=== PATIENT | male | born 1990 | race Caucasian/White ===

== ENCOUNTER 2018-03-23 10:01 | Emergency (ER) | payer SELFPAY ==
[2018-03-23] MEDS ORDERED: IBUPROFEN 400 MG TAB ONE (10:48)
[2018-03-23] MEDS ORDERED: IBUPROFEN 200 MG TAB PO ONE (10:48)
[2018-03-23] MEDS ORDERED: LIDOCAINE 1% MPF 2 ML AMPULE ONE (10:48)
[2018-03-23] MEDS ORDERED: CEFTRIAXONE 1000 MG/VIAL ONE (10:48)
[2018-03-23] MEDS ORDERED: HYDROCODONE/APAP 10/325 TAB ONE (10:48)
[2018-03-23] MEDS ORDERED: ONDANSETRON 4 MG (ODT) TAB ONE (10:49)
--- NOTE | 2018-03-23 10:53 | EDPHYS ---
Physician Documentation [facility] Name: Khari Alarcon Age: 27 yrs Sex: Male : 1990 Arrival Date: 03/23/2018 Time: 10:04 Bed 19 Private MD: None, None ED Physician Connor Bruno HPI: 03/23 11:30 This 27 yrs old Male presents to ER via Ambulatory with complaints of Facial snw pain. 11:30 Onset: The symptoms/episode began/occurred suddenly, 2 day(s) ago, and became snw persistent. Associated signs and symptoms: Pertinent positives: earache. Modifying factors: The patient symptoms are alleviated by nothing. The patient has experienced a previous episode, approximately 3 years ago. The patient has not recently seen a physician. wears earplugs daily. Historical: - Allergies: 10:31 Morphine; em - PMHx: 10:31 Kidney stones; em - PSHx: 10:31 None; em - Immunization history:: Last tetanus immunization: unknown, Flu vaccine is not up to date. - Social history:: Smoking status: Patient/guardian denies using tobacco. - Ebola Screening: : Patient negative for fever greater than or equal to 101.5 degrees Fahrenheit, and additional compatible Ebola Virus Disease symptoms Patient denies exposure to infectious person Patient denies travel to an Ebola-affected area in the 21 days before illness onset No symptoms or risks identified at this time. ROS: 10:51 Constitutional: Negative for fever, chills, and weight loss, Eyes: Negative for injury, snw pain, redness, and discharge, Neck: Negative for injury, pain, and swelling, Cardiovascular: Negative for chest pain, palpitations, and edema, Respiratory: Negative for shortness of breath, cough, wheezing, and pleuritic chest pain, Abdomen/GI: Negative for abdominal pain, nausea, vomiting, diarrhea, and constipation, Back: Negative for injury and pain, : Negative for injury, bleeding, discharge, and swelling, MS/Extremity: Negative for injury and deformity, Skin: Negative for injury, rash, and discoloration, Neuro: Negative for headache, weakness, numbness, tingling, and seizure. 10:51 ENT: Positive for ear pain. Exam: 10:42 Constitutional: This is a well developed, well nourished patient who is awake, alert, snw and in no acute distress. Head/Face: Normocephalic, atraumatic. Eyes: Pupils equal round and reactive to light, extra-ocular motions intact. Lids and lashes normal. Conjunctiva and sclera are non-icteric and not injected. Cornea within normal limits. Periorbital areas with no swelling, redness, or edema. Neck: Trachea midline, no thyromegaly or masses palpated, and no cervical lymphadenopathy. Supple, full range of motion without nuchal rigidity, or vertebral point tenderness. No Meningismus. Chest/axilla: Normal chest wall appearance and motion. Nontender with no deformity. No lesions are appreciated. Cardiovascular: Regular rate and rhythm with a normal S1 and S2. No gallops, murmurs, or rubs. Normal PMI, no JVD. No pulse deficits. Respiratory: Lungs have equal breath sounds bilaterally, clear to auscultation and percussion. No rales, rhonchi or wheezes noted. No increased work of breathing, no retractions or nasal flaring. Abdomen/GI: Soft, non-tender, with normal bowel sounds. No distension or tympany. No guarding or rebound. No evidence of tenderness throughout. Back: No spinal tenderness. No costovertebral tenderness. Full range of motion. Skin: Warm, dry with normal turgor. Normal color with no rashes, no lesions, and no evidence of cellulitis. MS/ Extremity: Pulses equal, no cyanosis. Neurovascular intact. Full, normal range of motion. Neuro: Awake and alert, GCS 15, oriented to person, place, time, and situation. Cranial nerves II-XII grossly intact. Motor strength 5/5 in all extremities. Sensory grossly intact. Cerebellar exam normal. Normal gait. 10:42 ENT: External ear(s): erythema, that is moderate, of the pinna of left ear, left ear lobe, left ear canal and left mastoid area, pain with movement, swelling, TM's: not visable, Nose: is normal, Mouth: is normal. Vital Signs: 10:32 BP 116 / 75; Pulse 88; Resp 16; Temp 98.3(O); Pulse Ox 97% on R/A; Weight 89.36 kg; em Height 5 ft. 10 in. (177.80 cm); Pain 10/10; 10:32 Body Mass Index 28.27 (89.36 kg, 177.80 cm) em MDM: 10:07 Patient medically screened. snw 10:51 Data reviewed: vital signs, nurses notes. Data interpreted: Pulse oximetry: on room air snw is 97 %. Interpretation: normal. Counseling: I had a detailed discussion with the patient and/or guardian regarding: the historical points, exam findings, and any diagnostic results supporting the discharge/admit diagnosis, the need for outpatient follow up, to return to the emergency department if symptoms worsen or persist or if there are any questions or concerns that arise at home. Special discussion: Based on the history and exam findings, there is no indication for further emergent testing or inpatient evaluation. I discussed with the patient/guardian the need to see the ENT specialist for further evaluation of the symptoms. I discussed with the patient/guardian the need to see the primary care provider for further evaluation of the symptoms. Administered Medications: 10:48 Drug: Zofran 4 mg Route: PO; em 11:30 Follow up: Response: No adverse reaction em 10:49 Drug: Kemp 10 mg-325 mg 1 tabs Route: PO; em 11:30 Follow up: Response: No adverse reaction em 10:49 Drug: Motrin 600 mg Route: PO; em 11:30 Follow up: Response: No adverse reaction em 10:58 Drug: Rocephin (cefTRIAXone) 1 grams Route: IM; Site: left deltoid; em 11:30 Follow up: Response: No adverse reaction em Disposition: 16:10 Co-signature as Attending Physician, Connor Bruno MD. gs Disposition: 03/23/18 10:52 Discharged to Home. Impression: Mastoiditis and related conditions. - Condition is Stable. - Discharge Instructions: Otitis Externa, Mastoiditis, Pediatric. - Prescriptions for cefdinir 300 mg Oral capsule - take 1 capsule by ORAL route every 12 hours for 21 days; 42 capsule. Diclofenac Sodium 75 mg Oral Tablet Sustained Release - take 1 tablet by ORAL route 2 times per day; 30 tablet. Ciprodex 0.3- 0.1 % Otic Drops, Suspension - instill 4 drop by OTIC route every 12 hours for 7 days , for ears ONLY; 1 Container. - Medication Reconciliation Form, Thank You Letter, Antibiotic Education, Prescription Opioid Use form. - Follow up: Gracie Pickens MD; When: 2 - 3 days; Reason: Recheck today's complaints, Continuance of care, Re-evaluation by your physician. Signatures: Sis Perez, SUMIT-C WAFER FABRICATION OPERATOR-Csnw Moe Michel, HIGH SCHOOL LIBRARIAN HIGH SCHOOL LIBRARIAN Polina Thomas, RN RN aa5 Connor Bruno MD MD gs Corrections: (The following items were deleted from the chart) 11:30 10:52 03/23/2018 10:52 Discharged to Home. Impression: Mastoiditis and related aa5 conditions. Condition is Stable. Forms are Medication Reconciliation Form, Thank You Letter, Antibiotic Education, Prescription Opioid Use. Follow up: Gracie Pickens; When: 2 - 3 days; Reason: Recheck today's complaints, Continuance of care, Re-evaluation by your physician. snw
--- NOTE | 2018-03-23 10:53 | ER ---
Nurse's Notes [facility] Name: Khari Alarcon Age: 27 yrs Sex: Male : 1990 Arrival Date: 03/23/2018 Time: 10:04 Bed 19 Private MD: None, None Diagnosis: Mastoiditis and related conditions Presentation: 03/23 10:29 Presenting complaint: Patient states: I have a bump in my ear and it's making my whole em left side of my face hurts that started 2 days ago, tried to drain it last night but I think I made it worse. Transition of care: patient was not received from another setting of care. Onset of symptoms. Risk Assessment: Do you want to hurt yourself or someone else? Patient reports no desire to harm self or others. Initial Sepsis Screen: Does the patient meet any 2 criteria? No. Patient's initial sepsis screen is negative. Does the patient have a suspected source of infection? No. Patient's initial sepsis screen is negative. Care prior to arrival: None. 10:29 Method Of Arrival: Ambulatory em 10:29 Acuity: MARIA A 4 aa5 Triage Assessment: 10:31 General: Appears in no apparent distress. uncomfortable, Behavior is calm, cooperative. em Pain: Complains of pain in left ear canal. Historical: - Allergies: 10:31 Morphine; em - PMHx: 10:31 Kidney stones; em - PSHx: 10:31 None; em - Immunization history:: Last tetanus immunization: unknown, Flu vaccine is not up to date. - Social history:: Smoking status: Patient/guardian denies using tobacco. - Ebola Screening: : Patient negative for fever greater than or equal to 101.5 degrees Fahrenheit, and additional compatible Ebola Virus Disease symptoms Patient denies exposure to infectious person Patient denies travel to an Ebola-affected area in the 21 days before illness onset No symptoms or risks identified at this time. Screenin:33 Abuse screen: Denies threats or abuse. Nutritional screening: No deficits noted. em Tuberculosis screening: No symptoms or risk factors identified. Fall Risk None identified. Assessment: 10:33 General: Appears in no apparent distress. comfortable, Behavior is calm, cooperative. em General: Denies fever. Pain: Complains of pain in left ear canal. Neuro: Level of Consciousness is awake, alert, obeys commands, Oriented to person, place, time, situation. Cardiovascular: Capillary refill < 3 seconds Patient's skin is warm and dry. Respiratory: Airway is patent Respiratory effort is even, unlabored, Respiratory pattern is regular, symmetrical. GI: Abdomen is flat. : No signs and/or symptoms were reported regarding the genitourinary system. Derm: Skin is intact, Skin is pink, warm \T\ dry. Musculoskeletal: Range of motion: intact in all extremities. 10:33 Reassessment: I agree with assessment completed by Moe Michel LVN . aa5 11:28 Reassessment: Patient is alert, oriented x 3, equal unlabored respirations, skin aa5 warm/dry/pink. Patient states feeling better. Patient states symptoms have improved. Vital Signs: 10:32 BP 116 / 75; Pulse 88; Resp 16; Temp 98.3(O); Pulse Ox 97% on R/A; Weight 89.36 kg; em Height 5 ft. 10 in. (177.80 cm); Pain 10/10; 10:32 Body Mass Index 28.27 (89.36 kg, 177.80 cm) em ED Course: 10:04 Patient arrived in ED. mr 10:05 None, None is Private Physician. mr 10:06 Sis Perez [facility]-C [facility]. snw 10:06 Connor Bruno MD is Attending Physician. snw 10:28 Moe Michel LVN is Primary Nurse. em 10:32 Arm band placed on. em 10:33 Patient has correct armband on for positive identification. Bed in low position. Call em light in reach. Adult w/ patient. 10:41 Triage completed. aa5 10:52 Gracie Pickens MD is Referral Physician. snw 11:28 No provider procedures requiring assistance completed. Patient did not have IV access aa5 during this emergency room visit. Administered Medications: 10:48 Drug: Zofran 4 mg Route: PO; em 11:30 Follow up: Response: No adverse reaction em 10:49 Drug: Archbald 10 mg-325 mg 1 tabs Route: PO; em 11:30 Follow up: Response: No adverse reaction em 10:49 Drug: Motrin 600 mg Route: PO; em 11:30 Follow up: Response: No adverse reaction em 10:58 Drug: Rocephin (cefTRIAXone) 1 grams Route: IM; Site: left deltoid; em 11:30 Follow up: Response: No adverse reaction em Outcome: 10:52 Discharge ordered by . aubrey 11:28 Discharged to home ambulatory, with family. aa5 11:28 Condition: stable 11:28 Discharge instructions given to patient, Instructed on discharge instructions, follow up and referral plans. medication usage, Demonstrated understanding of instructions, follow-up care, medications, Prescriptions given X 3. 11:30 Patient left the ED. aa5 Signatures: Sis Perez, ENAMEL PULVERIZER-C ENAMEL PULVERIZER-Csnw Yana Palcaio mr Moe Michel, GIRL FRIDAY GIRL FRIDAY Polina Thomas, RN RN aa5
[2018-03-23 11:34] VITALS: BP 116/75; TEMP 98.3; O2SAT 97
== END 2018-03-23 11:30 | disposition home or self-care (01) ==
LOC: ER 10:01
DX: H70.892 Other mastoiditis and related conditions, left ear (principal); Z88.5 Allergy status to narcotic agent
CPT/HCPCS: 96372; 99283; J2001

== ENCOUNTER 2020-10-20 00:50 | Emergency (ER) | payer SELFPAY ==
--- NOTE | 2020-10-20 03:01 | ER ---
Nurse's Notes [facility] Name: Khari Alarcon Age: 30 yrs Sex: Male : 1990 Arrival Date: 10/20/2020 Time: 01:01 Bed External Waiting Private MD: Diagnosis: Presentation: 10/20 01:09 Chief complaint: EMS states: Chest pain nonradiating, states started last night, sg worsening now CHARGE COORDINATOR pain was an 8 upon arrival is a 6/10, reports feeling better, no other symptoms reported for triage per EMS. Coronavirus screen: Client denies travel out of the [place] in the last 14 days. Ebola Screen: Patient negative for fever greater than or equal to 101.5 degrees Fahrenheit, and additional compatible Ebola Virus Disease symptoms Patient denies exposure to infectious person. Patient denies travel to an Ebola-affected area in the 21 days before illness onset. No symptoms or risks identified at this time. Initial Sepsis Screen: Does the patient meet any 2 criteria? No. Patient's initial sepsis screen is negative. Does the patient have a suspected source of infection? No. Patient's initial sepsis screen is negative. Risk Assessment: Do you want to hurt yourself or someone else? Patient reports no desire to harm self or others. Onset of symptoms was October 19, 2020. Care prior to arrival: None. Activity prior to arrival: None. Transition of care: patient was not received from another setting of care. 01:09 Acuity: MARIA A 3 sg 01:09 Method Of Arrival: EMS: [facility] Triage Assessment: 02:00 General: Call not found . [email or web address] Historical: - Allergies: 01:11 Morphine; sg - PMHx: 01:11 Kidney stones; sg - PSHx: 01:11 None; sg - Immunization history:: Adult Immunizations up to date. - Social history:: Smoking status: Patient denies any tobacco usage or history of. Vital Signs: 01:09 BP 134 / 88; Pulse 77; Resp 16; Temp 97.7; Pulse Ox 99% on R/A; sg ED Course: 01:01 Patient arrived in ED. sg 01:11 Triage completed. sg 01:11 Arm band placed on. sg Administered Medications: No medications were administered Outcome: 03:00 Patient left the ED. sg Signatures: Dionisio Gonzalez RN RN sg William Pool RN RN [email or web address] Corrections: (The following items were deleted from the chart) 02:01 02:00 General: Call not found . lyle rr5
[2020-10-20 03:08] VITALS: BP 134/88; TEMP 97.7; O2SAT 99
== END 2020-10-20 03:00 | disposition left against medical advice (07) ==
LOC: ER 00:50
DX: R07.9 Chest pain, unspecified (principal); Z53.21 Procedure and treatment not carried out due to patient leaving prior to being seen by health care provider
CPT/HCPCS: 99282

== ENCOUNTER 2023-11-13 02:40 | Emergency (ER) | payer SELFPAY ==
[2023-11-13] MEDS ORDERED: THIAMINE 200 MG/2 ML INJ ONE (03:32)
[2023-11-13] MEDS ORDERED: MULTIVITAMINS 10 ML VIAL (INJ) IV ONE (03:32)
[2023-11-13] MEDS ORDERED: NA CHLORIDE 0.9% 1,000 ML ONE (03:33)
[2023-11-13] MEDS ORDERED: FOLIC ACID 5 MG/ML VIAL ONE (03:33)
[2023-11-13 04:09] LABS: Barbiturates NEGATIVE (NEGATIVE); Benzodiazepines NEGATIVE (NEGATIVE); Cocaine NEGATIVE (NEGATIVE); METHAMPHETAM NEGATIVE (NEGATIVE); Methadone NEGATIVE (NEGATIVE); Opiates NEGATIVE (NEGATIVE); Phencyclidine NEGATIVE (NEGATIVE); THC Cannibis NEGATIVE (NEGATIVE)
[2023-11-13 04:15] LABS: Absolute Basophils 0.1 K/uL (0-0.5); Absolute Eosinophils 0.1 K/uL (0-0.5); Absolute Lymphocytes (CBC) 2.1 K/uL (0.7-4.9); Absolute Monocytes 0.6 K/uL (0.1-1.3); Absolute Neutrophil 7.6 K/uL (1.8-8.0); Basophils % 0.6 % (0-1.3); Eosinophils % 1.3 % (0-4.4); Hematocrit 43.7 % (39.6-49.0); Hemoglobin 15.2 g/dL (13.6-17.9); Lymphocytes % 19.8 % (15.3-44.8); MCH 31.6 pg (27.0-35.0); MCHC 34.8 g/dL (32.0-36.0); MPV 7.5 fL (7.6-11.3); Monocytes % 6.1 % (3.3-12.3); Neutrophils % 72.2 % (41.7-73.7); Nucleated Red Blood Cells % 0.1 % (0-0); Platelets 318 thou/uL (152-406); Red Cell Distribution Width 12.5 % (12.1-15.2)
[2023-11-13 04:33] LABS: ALT/SGPT 76 U/L (16-61); AST/SGOT 40 U/L (15-37); Albumin 3.9 g/dL (3.4-5.0); Albumin/Globulin Ratio 0.9 (1.1-1.8); Alkaline Phosphatase 96 U/L (45-117); Anion Gap 10.9 mEq/L (5.0-15.0); BUN Blood Urea Nitrogen 10 mg/dL (7-18); Bicarbonate 25 mEq/L (21-32); Bilirubin Direct 0.1 mg/dL (0-0.2); Bilirubin Indirect, Calculated 0.4 mg/dL (0.2-0.8); Bilirubin Total 0.5 mg/dL (0.2-1.0); Globulin 4.2 g/dL (2.3-3.5); Glomerular Filtration Rate 89 ml/min (=/>90); Glucose Level 131 mg/dL (74-106); Potassium 3.9 mEq/L (3.5-5.1); Protein, Total 8.1 g/dL (6.4-8.2); Sodium Level 136 mEq/L (136-145)
[2023-11-13 05:04] LABS: Specific Gravity 1.007 (1.005-1.030); Sqamous Epithelial <5 /HPF (None Seen); Urine Bacteria None Seen /HPF (<20); Urine Bilirubin NEGATIVE (Negative); Urine Blood 2+ (Negative); Urine Clarity Turbid (Clear); Urine Color Colorless (Yellow); Urine Culture Reflex Order NOT NEEDED; Urine Glucose NEGATIVE (Negative); Urine Ketones NEGATIVE (Negative); Urine Microscopic Reflex YN ORDER UMIC; Urine Nitrite NEGATIVE (Negative); Urine Protein NEGATIVE (Negative); Urine RBC <5 /HPF (None Seen); Urine Urobilinogen Normal (Normal); Urine WBC <5 /HPF (<5)
[2023-11-13] MEDS ORDERED: LIDOCAINE VISCOUS 2% 10ML ORAL SOLN ONE (05:24)
[2023-11-13] MEDS ORDERED: MAGNES/ALUMIN/SIMET 30ML UCUP ONE (05:24)
[2023-11-13 05:29] LABS: PT Prothrombin Time 11.1 SECONDS (9.5-12.5); PTT, Activated Partial Thromb 29.9 SECONDS (24.3-36.9); Protime INR 1.01
--- NOTE | 2023-11-13 06:36 | ER ---
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 03:02 Method Of Arrival: Law Enforcement: Shruti GORDON vc1 03:02 Coronavirus screen: At this time, the client does not indicate any symptoms associated vc1 with coronavirus-19. Ebola Screen: Patient negative for fever greater than or equal to 101.5 degrees Fahrenheit, and additional compatible Ebola Virus Disease symptoms Patient denies exposure to infectious person. Patient denies travel to an Ebola-affected area in the 21 days before illness onset. No symptoms or risks identified at this time. Initial Sepsis Screen: Does the patient meet any 2 criteria? No. Patient's initial sepsis screen is negative. Does the patient have a suspected source of infection? No. Patient's initial sepsis screen is negative. Risk Assessment: Do you want to hurt yourself or someone else? Patient reports desire/thoughts of hurting themselves or someone else. Provider notified. Onset of symptoms was November 13, 2023. Care prior to arrival: None. Activity prior to arrival: None. 03:02 Acuity: MARIA A 3 vc1 Triage Assessment: 03:02 General: Appears in no apparent distress. comfortable, Behavior is calm, cooperative, vc1 appropriate for age. Pain: Complains of pain in right hand. EENT: No deficits noted. No signs and/or symptoms were reported regarding the EENT system. Neuro: Level of Consciousness is awake, alert, obeys commands, Oriented to person, place, time, situation, Appropriate for age. Cardiovascular: No deficits noted. Respiratory: Airway is patent Respiratory effort is even, unlabored, Respiratory pattern is regular, symmetrical, Breath sounds are clear. GI: No deficits noted. No signs and/or symptoms were reported involving the gastrointestinal system. Abdomen is round non-distended. : No deficits noted. No signs and/or symptoms were reported regarding the genitourinary system. Derm: No deficits noted. No signs and/or symptoms reported regarding the dermatologic system. Musculoskeletal: No deficits noted. No signs and/or symptoms reported regarding the musculoskeletal system. Historical: - Allergies: 03:02 Morphine; vc1 - Home Meds: 03:02 None [Active]; vc1 - PMHx: 03:02 Kidney stones; vc1 03:02 Myocardial infarction; vc1 - PSHx: 03:02 None; vc1 - Immunization history:: Client reports having NOT received the Covid vaccine. Flu vaccine is not up to date. - Infectious Disease History:: Denies. - Social history:: Smoking status: Patient denies any tobacco usage or history of. - Family history:: not pertinent. Screenin:40 [facility] ED Fall Risk Assessment (Adult) History of falling in the last 3 months, vc1 including since admission No falls in past 3 months (0 pts) Confusion or Disorientation No (0 pts) Intoxicated or Sedated No (0 pts) Impaired Gait No (0 pts) Mobility Assist Device Used No (0 pt) Altered Elimination No (0 pt) Score/Fall Risk Level 0 - 2 = Low Risk Oriented to surroundings, Maintained a safe environment, Educated pt \\T\\ family on fall prevention, incl call for assistance when getting out of bed. Abuse screen: Denies threats or abuse. Nutritional screening: No deficits noted. Tuberculosis screening: No symptoms or risk factors identified. Assessment: 03:02 General: See triage assessment. vc1 04:30 Reassessment: No changes from previously documented assessment. Patient and/or family vc1 updated on plan of care and expected duration. Pain level reassessed. 06:28 Reassessment: Patient and/or family updated on plan of care and expected duration. Pain vc1 level reassessed. Patient is alert, oriented x 3, equal unlabored respirations, skin warm/dry/pink. General: Behavior is calm, cooperative, appropriate for age. Psych: 03:02 [place] Suicide Severity Screening: In the past month, have you wished you were vc1 or wished you could go to sleep and not wake up? Patient responds "yes." Based off the client's responses additional C-SSRS screening is required. "In the past month, have you actually had any thoughts of killing yourself?" Patient responds "yes." Based off the client's response additional [place] suicide severity screening questions to be further documented on paper forms. "In your lifetime, have you ever done anything, started to do anything, or prepared to do anything to end your life?" Patient responds "no.". 03:02 Subjective: Patient's mood is sad, Delusions are denied, Hallucinations are denied vc1 Having thoughts of suicide. Denies suicidal plan. 03:02 Objective: Patient is cooperative, Speech is normal, Affect is flat. Interventions: vc1 Removed personal items and placed in bag. Patient placed in hospital gown. Searched person for dangerous items. Urine collected and sent for urine drug test. Belonging list filled out. Safety Checks: Personal items have been removed. Door is open. No visitors are present at this time. Patient uses of beer, daily. Commitment: Patient will be an involuntary commitment. 06:45 [place] Suicide Severity Screening: released from 1:1 observation. vc1 Vital Signs: 03:02 Weight 106.14 kg; Height 5 ft. 10 in. ; vc1 03:03 BP 113 / 69; Pulse 95; Resp 19; Temp 98.2; Pulse Ox 100% on R/A; vk 06:50 BP 110 / 64; Pulse 88; Resp 18; Temp 98.2; Pulse Ox 100% ; vc1 03:02 Body Mass Index 33.58 (106.14 kg, 177.8 cm) vc1 Lauryn Coma Score: 06:33 Eye Response: spontaneous(4). Motor Response: obeys commands(6). Verbal Response: sp4 oriented(5). Total: 15. ED Course: 02:42 Patient arrived in ED. kmf 03:02 Patient placed in an exam room, on a stretcher. vc1 03:04 Hank Chatterjee MD is Attending Physician. sp4 03:04 Safety checks: Items removed: yes. Door open/sign placed on door: yes. Sitter present: vk Yes. Patient has correct armband on for positive identification. Valuables inventory done. Locked in safe. 03:41 Missed attempt(s): 22 gauge in right antecubital area. vk 03:41 Inserted saline lock: 22 gauge in left antecubital area, using aseptic technique. vk Accessed Missed attempt(s):. 03:42 Initial lab(s) drawn, by me, sent to lab. vk 03:43 Acetaminophen Sent. vk 03:43 Basic Metabolic Panel Sent. vk 03:43 CBC with Diff Sent. vk 03:43 Urine Drug Screen Sent. vk 03:44 Urinalysis w/ reflexes Sent. vk 03:44 Salicylate Sent. vk 03:44 Ptt, Activated Sent. vk 03:44 PT-INR Sent. vk 03:44 Hepatic Function Sent. vk 03:44 ETOH Level Sent. vk 03:48 Triage completed. vc1 04:00 No provider procedures requiring assistance completed. vc1 04:52 Hand Right 3 View XRAY In Process Unspecified. EDMS 06:22 Assisted to bathroom. vk 06:54 Kim Martinez, RN is Primary Nurse. vc1 06:55 Provided Education on: use safety plan if needed. vc1 06:55 IV discontinued, intact, bleeding controlled, No redness/swelling at site. Pressure vc1 dressing applied. Administered Medications: 03:41 Drug: Banana Bag - (Multivitamin IV 1 amp, NS 0.9% IV 1000 ml, Thiamine IV 100 mg, vc1 foLIC Acid IVPB 1 mg) IV at calculated rate once Route: IV; Rate: calculated rate; Site: left antecubital; 06:28 Follow up: IV Status: Completed infusion; IV Intake: 1000ml vc1 Medication: 03:10 VIS not applicable for this client. vc1 Intake: 06:28 IV: 1000ml; Total: 1000ml. vc1 Outcome: 06:36 Discharge ordered by . sp4 06:54 Discharged to home ambulatory, vc1 06:54 Condition: improved 06:54 Discharge instructions given to patient, Instructed on discharge instructions, follow up and referral plans. Demonstrated understanding of instructions, follow-up care, 06:55 Patient left the ED. vc1 Signatures: Dispatcher [employer] EDCO Kim Martinez, JOSE RN vc1 Hank Chatterjee MD MD sp4 Maria Elena Hurtado Vivian vk
--- NOTE | 2023-11-13 06:36 | EDPHYS ---
Physician Documentation [facility] Name: Khari Alarcon Age: 33 yrs Sex: Male : 1990 Arrival Date: 11/13/2023 Time: 02:40 Bed 15 Private MD: ED Physician Hank Chatterjee HPI: 11/12 03:05 This 33 yrs old Male presents to ER via Unassigned with complaints of sp4 intoxication, suicidal ideation . 06:33 33-year-old male presents with alcohol intoxication after he reported to the police sp4 that he has suicidal thoughts. Patient denied any plan. . Historical: - Allergies: 03:02 Morphine; vc1 - Home Meds: 03:02 None [Active]; vc1 - PMHx: 03:02 Kidney stones; vc1 03:02 Myocardial infarction; vc1 - PSHx: 03:02 None; vc1 - Immunization history:: Client reports having NOT received the Covid vaccine. Flu vaccine is not up to date. - Infectious Disease History:: Denies. - Social history:: Smoking status: Patient denies any tobacco usage or history of. - Family history:: not pertinent. ROS: 06:33 Constitutional: Negative for fever, chills, and weight loss, sp4 06:33 Constitutional: Negative for fever, chills, and weight loss, 06:33 All other systems are negative, Exam: 06:33 Constitutional: This is a well developed, well nourished patient who is awake, alert, sp4 and in no acute distress. Head/Face: Normocephalic, atraumatic. Eyes: Pupils equal round and reactive to light, extra-ocular motions intact. Lids and lashes normal. Conjunctiva and sclera are not injected. Cornea within normal limits. Periorbital areas with no swelling, redness, or edema. ENT: Nares patent. No nasal discharge, no septal abnormalities noted. Tympanic membranes are normal and external auditory canals are clear. Oropharynx with no redness, swelling, or masses, exudates, or evidence of obstruction, uvula midline. Mucous membranes moist. Neck: Trachea midline, no thyromegaly or masses palpated, and no cervical lymphadenopathy. Supple, full range of motion without nuchal rigidity, or vertebral point tenderness. Chest/axilla: Normal chest wall appearance and motion. Nontender with no deformity. No lesions are appreciated. Cardiovascular: Regular rate and rhythm with a normal S1 and S2. No gallops, murmurs, or rubs. Normal PMI, no JVD. No pulse deficits. Respiratory: Lungs have equal breath sounds bilaterally, clear to auscultation and percussion. No rales, rhonchi or wheezes noted. No increased work of breathing, no retractions or nasal flaring. Abdomen/GI: Soft, with normal bowel sounds. No distension or tympany. No guarding or rebound. No evidence of tenderness throughout. Back: No spinal tenderness. No costovertebral tenderness. Skin: Warm, dry with normal turgor. Normal color with no rashes, no lesions, and no evidence of cellulitis. MS/ Extremity: Pulses equal, no cyanosis. Neurovascular intact. Full, normal range of motion. Neuro: Awake and alert, GCS 15, oriented to person, place, time, and situation. Cranial nerves II-XII grossly intact. Motor strength 5/5 in all extremities. Sensory grossly intact. Psych: Awake, alert, with orientation to person, place and time. Behavior, mood, and affect are within normal limits, patient denied suicidal ideation or plan Vital Signs: 03:02 Weight 106.14 kg; Height 5 ft. 10 in. ; vc1 03:03 BP 113 / 69; Pulse 95; Resp 19; Temp 98.2; Pulse Ox 100% on R/A; vk 06:50 BP 110 / 64; Pulse 88; Resp 18; Temp 98.2; Pulse Ox 100% ; vc1 03:02 Body Mass Index 33.58 (106.14 kg, 177.8 cm) vc1 [place] Coma Score: 06:33 Eye Response: spontaneous(4). Motor Response: obeys commands(6). Verbal Response: sp4 oriented(5). Total: 15. MDM: 03:06 Patient medically screened. sp4 06:29 ED course: EXAM DESCRIPTION: Hand Right 3 View CLINICAL HISTORY: PAIN COMPARISON: None. sp4 FINDINGS: 3 views of the right hand. Age indeterminate possibly acute fracture of the distal right fifth metacarpal. Overlying soft tissue edema. No other areas concerning for acute fracture. Normal osseous mineralization. IMPRESSION: Age-indeterminate possibly acute fracture of the distal right fifth metacarpal. Correlation for point tenderness recommended. Followup radiographs may be helpful. Electronically signed by: Anand Pastor DO 11/13/2023 05:18 AM. 06:33 Differential Diagnosis altered mental status, sepsis, flu, Intoxication . Data sp4 reviewed: vital signs, nurses notes, lab test result(s), electrolytes, hepatic panel, urinalysis, urine drug screen. ED course: Patient states that he is no longer suicidal and has no plan. Denied homicidal ideation. Patient states she would like to be released home. At this time we see no impediment for discharge. Advised abstinence from alcohol. . 11/12 03:05 Order name: Acetaminophen; Complete Time: 06:26 4 11/12 03:05 Order name: Basic Metabolic Panel; Complete Time: 06:26 4 11/12 03:05 Order name: CBC with Diff; Complete Time: 06:26 4 11/12 03:05 Order name: ETOH Level; Complete Time: 06:26 4 11/12 03:05 Order name: Hepatic Function; Complete Time: 06:26 4 11/12 03:05 Order name: PT-INR; Complete Time: 06:26 sp4 11/12 03:05 Order name: Ptt, Activated; Complete Time: 06:26 4 11/12 03:05 Order name: Salicylate; Complete Time: 06:26 sp4 11/12 03:05 Order name: Urinalysis w/ reflexes; Complete Time: 06:26 4 11/12 03:05 Order name: Urine Drug Screen; Complete Time: 06:26 4 11/12 03:05 Order name: Hand Right 3 View XRAY 4 11/12 03:05 Order name: EKG - Nurse/Tech; Complete Time: 04:00 sp4 11/12 03:05 Order name: IV Saline Lock; Complete Time: 03:43 sp4 11/12 03:05 Order name: Labs collected and sent; Complete Time: 03:43 4 11/12 03:05 Order name: Suicide Precautions; Complete Time: 04:00 4 11/12 03:05 Order name: Suicide Screening ([place]); Complete Time: 04:02 sp4 Administered Medications: 03:41 Drug: Banana Bag - (Multivitamin IV 1 amp, NS 0.9% IV 1000 ml, Thiamine IV 100 mg, vc1 foLIC Acid IVPB 1 mg) IV at calculated rate once Route: IV; Rate: calculated rate; Site: left antecubital; 06:28 Follow up: IV Status: Completed infusion; IV Intake: 1000ml vc1 Disposition Summary: 11/13/23 06:36 Discharge Ordered Notes: Location: Home sp4 Problem: new sp4 Symptoms: have improved sp4 Condition: Stable sp4 Diagnosis - Alcohol abuse with intoxication sp4 Followup: sp4 - With: Private Physician - When: 7 - 10 days - Reason: Recheck today's complaints Discharge Instructions: - Discharge Summary Sheet sp4 - Alcohol Intoxication sp4 Forms: - Patient Portal Instructions sp4 Signatures: Dispatcher [employer] EDMS Kim Martinez RN RN vc1 Hank Chatterjee MD MD sp4 Corrections: (The following items were deleted from the chart) 03:06 03:06 ACETAMINOPHEN+C.LAB.BRZ ordered. EDMS EDMS 03:06 03:06 BASIC METABOLIC PANEL+C.LAB.BRZ ordered. EDMS EDMS 03:06 03:06 CBC+H.LAB.BRZ ordered. EDMS EDMS 03:06 03:06 ETHANOL+C.LAB.BRZ ordered. EDMS EDMS 03:06 03:06 HEPATIC FUNCTION+C.LAB.BRZ ordered. EDMS EDMS 03:06 03:06 PROTIME (+INR)+COAG.LAB.BRZ ordered. EDMS EDMS 03:06 03:06 PTT, ACTIVATED+COAG.LAB.BRZ ordered. EDMS EDMS 03:06 03:06 SALICYLATE+C.LAB.BRZ ordered. EDMS EDMS 03:06 03:06 Urinalysis+U.LAB.BRZ ordered. EDMS EDMS 03:06 03:06 URINE DRUG SCREEN+UC.LAB.BRZ ordered. EDMS EDMS
[2023-11-13 11:14] VITALS: BP 110/64; TEMP 98.2; O2SAT 100
--- NOTE | 2023-11-13 13:04 | RAD REPORT ---
EXAM DESCRIPTION: RAD - Hand Right 3 View - 11/13/2023 4:50 am CLINICAL HISTORY: PAIN COMPARISON: None. FINDINGS: 3 views of the right hand. Age indeterminate possibly acute fracture of the distal r ight fifth metacarpal. Overlying soft tissue edema. No other areas concerning for acute fracture. N ormal osseous mineralization. IMPRESSION: Age-indeterminate possibly acute fracture of the distal right fifth metacarpal. Correlat ion for point tenderness recommended. Follow-up radiographs may be helpful. Electronically signed by: Anand Pastor DO 11/13/2023 05:18 AM CDT M Due to temporary technical issues with the PACS/Fluency reporting system, reports are being signed by the in house radiologists without review as a courtesy to insure prompt reporting. The interpreting radiologist is fully responsible for the content of the report.
== END 2023-11-13 06:55 | disposition home or self-care (01) ==
LOC: ER 02:40
DX: F10.129 Alcohol abuse with intoxication, unspecified (principal); R45.851 Suicidal ideations
CPT/HCPCS: 36415; 80048; 80076; 80143; 80179; 80307; 81001; 82077; 85025; 85610; 85730; 96365; 96366; 99285; J3411; J7030